=== PATIENT | male | born 1995 | race Caucasian/White ===

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

== ENCOUNTER 2017-05-15 17:21 | Emergency (ER) | payer MEDICAID ==
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
== END 2017-05-15 18:14 | disposition home or self-care (01) ==
LOC: VM.ED 17:21
DX: S60.222A Contusion of left hand, initial encounter (principal); W22.8XXA Striking against or struck by other objects, initial encounter
CPT/HCPCS: 73130-LT; 99283

== ENCOUNTER 2021-06-18 18:23 | Emergency (ER) | payer BC, MEDICAID, OTHER ==
[2021-06-18] MEDS ORDERED: Lidocaine 1% 30 ML SDV INJECT ONE (18:46)
[2021-06-18] MEDS ORDERED: Take Home: Acetaminophen/HYDROcodone 325-10 MG, 5 Tab Pack PO ONE (18:47)
[2021-06-18 20:04] LABS: CHLORIDE,CL 102 mmol/L (98-107); SODIUM,NA 138 mmol/L (136-145)
[2021-06-18] MEDS ORDERED: Take Home: Sulfamethoxazole/Trimethoprim 800-160 MG Tab, 2 Tab Pack PO ONE (20:22)
== END 2021-06-18 20:31 | disposition home or self-care (01) ==
LOC: VM.ED 18:23
DX: L02.31 Cutaneous abscess of buttock (principal); Z87.891 Personal history of nicotine dependence
CPT/HCPCS: 10060; 36415; 80053; 83605; 85025; 86140; 87040; 87070; 87077; 99283; 99283-25; A9270-GY